=== PATIENT | female | born 1945 | race Caucasian/White ===

== ENCOUNTER 2020-08-28 17:05 | Outpatient (CLI) | payer MEDICARE | END 2020-08-28 17:06 | disposition home or self-care (01) | LOC: CSHULT 17:05 | PROVIDERS: ATTEND Internal Medicine Nephrology | DX: N18.30 Chronic kidney disease, stage 3 unspecified (principal) | CPT/HCPCS: 76770 ==

== ENCOUNTER 2021-09-18 11:57 | Emergency (ER) | payer OTHER, MEDICARE | END 2021-09-18 13:04 | disposition home or self-care (01) | LOC: CSHERS 11:57 | DX: S63.612A Unspecified sprain of right middle finger, initial encounter (principal); M79.7 Fibromyalgia; G47.00 Insomnia, unspecified; W06.XXXA Fall from bed, initial encounter ==